=== PATIENT | female | born 1980 | race Caucasian/White ===

== ENCOUNTER 2022-10-22 08:30 | Outpatient (CLI) | payer BC, SELFPAY ==
--- NOTE | 2022-10-22 08:45 | CRLHL7_ITS ---
For Patients: As a result of the Cures Act, medical imaging exams and procedure reports are released immediately into your electronic medical record. You may view this report before your referring provider. If you have questions, please contact your health care provider. DIGITAL DIAGNOSTIC RIGHT MAMMOGRAM USING TOMOSYNTHESIS AND COMPUTER-AIDED DETECTION RIGHT BREAST ULTRASOUND CLINICAL HISTORY: RIGHT breast mass/asymmetry. COMPARISON: 08/09/2021, 06/21/2020. TECHNIQUE: Digital RIGHT mammogram in two projections. Tomosynthesis and CAD utilized. Real-time ultrasound imaging of RIGHT breast with imaging documentation. BREAST COMPOSITION: The breast is heterogeneously dense, which may obscure small masses. FINDINGS: 3D spot compression CC/MLO implant-displaced RIGHT breast mammogram images submitted. There is an island of fibroglandular tissue within the upper inner quadrant at posterior depth without architectural distortion or suspicious margins. The implant is intact. No suspicious calcifications. No adenopathy. Targeted RIGHT breast ultrasound performed in the upper inner quadrant 1 o`clock 7 cm from the nipple. An island of dense tissue is present without underlying mass. No fibrocystic change. IMPRESSION: No evidence of malignancy. RECOMMENDATIONS: Annual BILATERAL screening mammography. Results and recommendations discussed with the patient. BI-RADS Category 2: Benign A lay language report of this examination will be provided to the patient. Dictated by Jun Philippe MD @ 10/22/2022 9:38:33 AM /Dictated by: Jun Philippe MD @ 10/22/2022 9:38:00 AM (Electronically Signed)
--- NOTE | 2022-10-22 09:15 | CRLHL7_ITS ---
For Patients: As a result of the Cures Act, medical imaging exams and procedure reports are released immediately into your electronic medical record. You may view this report before your referring provider. If you have questions, please contact your health care provider. PLEASE SEE DIGITAL DIAGNOSTIC RIGHT MAMMOGRAM PERFORMED SAME DAY CRL:candice harvey/Dictated by: Jun Philippe MD @ 10/22/2022 9:38:00 AM (Electronically Signed)
== END 2022-10-22 08:31 | disposition home or self-care (01) ==
PROVIDERS: Visit Provider Registered Nurse
DX: N63.10 Unspecified lump in the right breast, unspecified quadrant (principal); R92.2 Inconclusive mammogram; R92.8 Other abnormal and inconclusive findings on diagnostic imaging of breast
CPT/HCPCS: 76642; 77065; G0279

== ENCOUNTER 2022-12-05 00:52 | Outpatient (CLI) | payer BC, SELFPAY | END 2022-12-05 00:53 | disposition home or self-care (01) | LOC: AMB 12-08 09:13 | PROVIDERS: Visit Provider Family Medicine | DX: R10.9 Unspecified abdominal pain (principal) | CPT/HCPCS: A0425; A0429 ==

== ENCOUNTER 2022-12-05 01:28 | Emergency (ER) | payer BC, SELFPAY ==
[2022-12-05 01:37] VITALS: BP 110/79; PULSE 85; RESP 16; TEMP 36.8; O2SAT 99; BMI 25.0
--- NOTE | 2022-12-05 01:41 | ED_ITS ---
HPI - Abdominal Pain General Time Seen by Provider: 01:41 <Awilda Verdugo MD - Last Filed: 12/05/22 01:56> Date Seen: 12/05/22 <Awilda Verdugo MD - Last Filed: 12/05/22 01:56> Chief Complaint: Abdominal Pain <Awilda Verdugo MD - Last Filed: 12/05/22 01:56> Stated Complaint: stomach pain <Awilda Verdugo MD - Last Filed: 12/05/22 01:56> Time Seen by Provider: 12/05/22 01:40 <Awilda Verdugo MD - Last Filed: 12/05/22 01:56> Source: patient, EMS and RN notes reviewed <Awilda Verdugo MD - Last Filed: 12/05/22 01:56> Mode of arrival: EMS <Awilda Verdugo MD - Last Filed: 12/05/22 01:56> Limitations: no limitations <Awilda Verdugo MD - Last Filed: 12/05/22 01:56> History of Present Illness HPI narrative: This 42-year-old female is brought in by EMS for severe abdominal pain, she points to the epigastric area where it is, moved a bit over to right upper quadrant. She is status post cholecystectomy before, has also had a hysterectomy. She was watching television having a night cap with her significant other when this ?hit her like a ton of bricks? per her significant other. She is lying quietly, he initially does most of the talking but she eventually does start talking. She felt significant nausea but no vomiting no stool production, no urinary symptoms. She collapsed in the bathroom from the pain to the floor and could not get up because of the pain. EMS did give her 50 micro g IM fentanyl which did initially help but is already wearing off. No fevers or chills. No associated respiratory symptoms, no radiation of pain elsewhere, not into the chest. She has not had any respiratory symptoms with this. She is feeling nauseated at this time. <Awilda Verdugo MD - Last Filed: 12/05/22 01:56> MD elicited complaint: abdominal pain <Awilda Verdugo MD - Last Filed: 12/05/22 01:56> Pain Consistency: constant <Awilda Verdugo MD - Last Filed: 12/05/22 01:56> Location: epigastric and RUQ <Awilda Verdugo MD - Last Filed: 12/05/22 01:56> Severity: severe <Awilda Verdugo MD - Last Filed: 12/05/22 01:56> Radiation: none <Awilda Verdugo MD - Last Filed: 12/05/22 01:56> Related Data Hx Last Menstrual Period: Status post hysterectomy <Awilda Verdugo MD - Last Filed: 12/05/22 01:56> Patient : No <Awilda Verdugo MD - Last Filed: 12/05/22 01:56> Home Medications: Home Medications Medication Instructions Recorded Confirmed levothyroxine 125 mcg tablet 125 mcg PO DAILY 12/05/22 12/05/22 <Awilda Verdugo MD - Last Filed: 12/05/22 01:56> Allergies/Adverse Reactions: Allergies Allergy/AdvReac Type Severity Reaction Status Date / Time No Known Drug Allergies Allergy Verified 12/05/22 01:40 <Awilda Verdugo MD - Last Filed: 12/05/22 01:56> Review of Systems Status of ROS Reports: 6 or more systems reviewed and unremarkable except as noted in History and below <Awilda Verdugo MD - Last Filed: 12/05/22 01:56> [facility] Medical History: Medical History (Updated 12/05/22 @ 03:37 by Ronnie Robbins, RN) No significant past medical history <Awilda Verdugo MD - Last Filed: 12/05/22 01:56> Surgical History: Surgical History (Updated 12/05/22 @ 03:37 by Ronnie Robbins, RN) No significant past surgical history <Awilda Verdugo MD - Last Filed: 12/05/22 01:56> Exam Const: Vital Signs, click to edit/add: Vital Signs - 24 hr 12/05/22 01:37 12/05/22 01:44 Temperature 98.3 F Pulse Rate [Left P ulse Oximeter] 85 Respiratory Rate 16 Blood Pressure [Ri ght Upper Arm] 110/79 Pulse Oximetry 99 97 Oxygen Delivery Me thod Room Air <Awilda Verdugo MD - Last Filed: 12/05/22 01:56> Vital Signs, click to edit/add: Vital Signs - 24 hr 12/05/22 01:37 12/05/22 01:44 Temperature 98.3 F Pulse Rate [Left P ulse Oximeter] 85 Respiratory Rate 16 Blood Pressure [Ri ght Upper Arm] 110/79 Pulse Oximetry 99 97 Oxygen Delivery Me thod Room Air <Amalia Jane MD - Last Filed: 12/05/22 03:39> Documenting provider has reviewed patient's vital signs: yes <Awilda Verdugo MD - Last Filed: 12/05/22 01:56> Common normals: no apparent distress, average body habitus, oriented x3, healthy appearing, alert and well nourished <Awilda Verdugo MD - Last Filed: 12/05/22 01:56> General appearance: cooperative, well kempt, well developed and odor of alcohol detected <Awilda Verdugo MD - Last Filed: 12/05/22 01:56> Other: Lying with her left shoulder down on the bed rotated with the pillow underneath her chest wall initially. She can rotate over for me to feel her abdomen better. <Awilda Verdugo MD - Last Filed: 12/05/22 01:56> HENMT: Common normals: normocephalic, head/scalp atraumatic, hearing grossly normal bilaterally, moist oral mucous membranes, oropharynx normal, dentition normal and gingiva normal <Awilda Verdugo MD - Last Filed: 12/05/22 01:56> Head and scalp: normocephalic and atraumatic <Awilda Verdugo MD - Last Filed: 12/05/22 01:56> Eye: Common normals: PERRL, EOMs intact bilaterally and no scleral icterus <MD Oswaldo Bess Last Filed: 12/05/22 01:56> Pupil: PERRL <MD Oswaldo Bess Last Filed: 12/05/22 01:56> Other: Conjunctiva slightly injected but no periorbital swelling, no drainage. <MD Oswaldo Bess Last Filed: 12/05/22 01:56> Neck & C-Spine: Common normals: full ROM, no lymphadenopathy and supple <MD Oswaldo Bess Last Filed: 12/05/22 01:56> Chest: Common normals: inspection of chest normal and palpation of chest normal <MD Oswaldo Bess Last Filed: 12/05/22 01:56> Resp: Common normals: normal respiratory effort, no retractions, no use of accessory muscles and clear to auscultation bilaterally <MD Oswaldo Patterson Last Filed: 12/05/22 01:56> Auscultation: clear to auscultation bilaterally <MD Oswaldo Bess Last Filed: 12/05/22 01:56> Cardio: Common normals: regular rate, regular rhythm, S1 normal heart sound, S2 normal heart sound, no gallops, no clicks and no murmurs <MD Oswaldo Bess Last Filed: 12/05/22 01:56> Rate: regular rate <MD Oswaldo Bess Last Filed: 12/05/22 01:56> Rhythm: regular rhythm <MD Oswaldo Bess Last Filed: 12/05/22 01:56> Heart sounds: S1 normal and S2 normal <MD Oswaldo Bess Last Filed: 12/05/22 01:56> GI: Common normals: Normal to inspection, nondistended, normoactive bowel sounds present, soft to palpation, no hepatosplenomegaly and no masses <MD Oswaldo Bess Last Filed: 12/05/22 01:56> Palpation: soft and no hepatosplenomegaly <Awilda Verdugo MD - Last Filed: 12/05/22 01:56> Other: Epigastric to mild right upper quadrant tenderness, no rebound or guarding. <Awilda Verdugo MD - Last Filed: 12/05/22 01:56> Extremity: Common normals: no calf tenderness and no pedal edema <Awilda Verdugo MD - Last Filed: 12/05/22 01:56> Neuro: [place] Coma Scale: document GCS findings [place]osselin coma scale eye opening: Spontaneous (4) [place] coma scale verbal response: Orientated (5) [place] coma scale motor response: Obey commands (6) [place] coma scale total score: 15 <Awilda Verdugo MD - Last Filed: 12/05/22 01:56> [place] Coma Scale: document GCS findings [place] coma scale total score: 15 <Amalia Jane MD - Last Filed: 12/05/22 03:39> Common normals: oriented x3 and moves all extremities <Awidla Pineda MD - Last Filed: 12/05/22 01:56> Sensorium/orientation: alert <Awilda Verdugo MD - Last Filed: 12/05/22 01:56> Psych: Appearance: well kempt <Awilda Verdugo MD - Last Filed: 12/05/22 01:56> Course Course Hospital Course: This is a 42-year-old female with severe sudden onset of epigastric pain. She is status post cholecystectomy. She still could have a stone in the duct that has passed, pancreatitis. Could be gastrointestinal including gastritis, peptic ulcer disease but typically these would not have sudden severe onset. Does not seem to be appropriate distribution or symptoms for kidney stone. Will look at a urinalysis. Am ordering CT abdomen pelvis with IV contrast to start. It is likely we would still see a kidney stone if there were 1 there. Patient will be given a L of IV fluids with normal saline, 4 mg IV Zofran to control her nausea and I have ordered another 25 mcg IV fentanyl for pain for her as her pain is returning. When I was in with her, O2 sats with good oximetry were 88- 89%, patient is lying more prone. May need to consider oxygen with the subsequent pain medicines given. Have alerted nursing staff to this. <Awilda Verdugo MD - Last Filed: 12/05/22 01:56> Reevaluation(s) Reevaluation #1: has signed this patient out to me. Currently waiting on laboratory values as well as CT of the abdomen. Not require any further pain medications at this time. When I do enter the room to discuss lab results with family patient is lying supine and appears comfortable in room 6. She is holding the area of her hypogastrium. No complaints of shortness of breath or chest pain. <Amalia Jane MD - Last Filed: 12/05/22 03:39> Reevaluation #2: Patient noted to have reassuring laboratory findings including a normal white count as well as CRP. She has no elevation of her alcohol level to 0.21 as well as lactate of 3.2. LFTs and lipase within normal limits. EKGs and troponin all reassuring at this time as well. I did not discuss alcohol level being elevated at this time given the fact that patient's children were in the room. CT does show increased stool burden but no other acute findings. At 1 point previous physician concerned regarding oxygen levels post fentanyl. Patient now in high 90s oxygen levels on room air. <Amalia Jane MD - Last Filed: 12/05/22 03:39> Vital Signs Vital signs: Initial Vital Signs Temperature 98.3 F 12/05/22 01:37 Temperature Source Temporal Artery Scan 12/05/22 01:37 Pulse Rate 85 12/05/22 01:37 Respiratory Rate 16 12/05/22 01:37 Blood Pressure 110/79 12/05/22 01:37 Blood Pressure Mean 89 12/05/22 01:37 Blood Pressure Position Sitting 12/05/22 01:37 Pulse Oximetry 99 12/05/22 01:37 Oxygen Delivery Method Room Air 12/05/22 01:37 Vital Signs Temperature 98.3 F 12/05/22 01:37 Pulse Rate 85 12/05/22 01:37 Respiratory Rate 16 12/05/22 01:37 Blood Pressure 110/79 12/05/22 01:37 Pulse Oximetry 99 12/05/22 01:37 Oxygen Delivery Method Room Air 12/05/22 01:37 Temperature 98.3 F 12/05/22 01:37 Pulse Rate 85 12/05/22 01:37 Respiratory Rate 16 12/05/22 01:37 Blood Pressure 110/79 12/05/22 01:37 Pulse Oximetry 97 12/05/22 01:44 Oxygen Delivery Method Room Air 12/05/22 01:37 <Awilda Verdugo MD - Last Filed: 12/05/22 01:56> Initial Vital Signs Temperature 98.3 F 12/05/22 01:37 Temperature Source Temporal Artery Scan 12/05/22 01:37 Pulse Rate 85 12/05/22 01:37 Respiratory Rate 16 12/05/22 01:37 Blood Pressure 110/79 12/05/22 01:37 Blood Pressure Mean 89 12/05/22 01:37 Blood Pressure Position Sitting 12/05/22 01:37 Pulse Oximetry 99 12/05/22 01:37 Oxygen Delivery Method Room Air 12/05/22 01:37 Vital Signs Temperature 98.3 F 12/05/22 01:37 Pulse Rate 85 12/05/22 01:37 Respiratory Rate 16 12/05/22 01:37 Blood Pressure 110/79 12/05/22 01:37 Pulse Oximetry 99 12/05/22 01:37 Oxygen Delivery Method Room Air 12/05/22 01:37 Temperature 98.3 F 12/05/22 01:37 Pulse Rate 85 12/05/22 01:37 Respiratory Rate 16 12/05/22 01:37 Blood Pressure 110/79 12/05/22 01:37 Pulse Oximetry 97 12/05/22 01:44 Oxygen Delivery Method Room Air 12/05/22 01:37 <Amalia Jane MD - Last Filed: 12/05/22 03:39> MDM - Abdominal Pain MDM Narrative Medical decision making narrative: 1. Abdominal pain-at this time there is evidence of increased stool burden or constipation on the CT but no evidence of pancreatitis, colitis, or other intra-abdominal abnormality. Laboratory values are reassuring with normal white count, CRP, LFTs and lipase. EKG is reassuring with negative troponins and no evidence of acute ST or T-wave changes. I believe this most likely represents gastritis but could be early viral illness. At this time patient is improved and will be discharging her home. Did treat her with omeprazole 40 mg p.o. in the ED. would like her to continue 20 mg daily for the next 2 weeks. Would like her to decrease alcohol use. Of course for worsening symptoms would have her return to the emergency room for further evaluation. 2. Nausea-patient noted to be improved until immediately prior to discharge. Nursing staff notes complaints of some mild nausea returning. Will give Zofran ODT 4 mg tab p.o. Q 8 hours p.r.n. via [place] machine. 10. With no refills 3. Elevated alcohol level 0.21 with normal liver function tests. 4. Disposition-home with family at this time. In fact I was told by nursing staff that the patient would like to go prior to this 2nd troponin. I did explain that I was just waiting on a 2nd EKG and 2nd troponin and they were very gracious to wait but obviously anxious to depart. I appreciate the fact that they did stay for the 2nd EKG and troponin. Return as needed for worsening symptoms. <Amalia Jane MD - Last Filed: 12/05/22 03:39> Differential Diagnosis Differential diagnosis: Likely abdominal pain, calculus of kidney and pancreatitis <Awilda Verdugo MD - Last Filed: 12/05/22 01:56> Medical Records Attestation: I reviewed the patient's medical records. <Amalia Jane MD - Last Filed: 12/05/22 03:39> Lab Data Attestation: I reviewed the patient's lab results. <Amalia Jane MD - Last Filed: 12/05/22 03:39> Labs: Lab Results 12/05/22 12/05/22 Range/Units 01:40 02:05 WBC 6.98 (4.50-11.00) K/uL RBC 4.30 (4.00-5.20) m/uL Hgb 14.3 (12.0-16.0) gm/dL Hct 41.9 (33.0-51.0) % MCV 97 (80-100) fL MCH 33 (26-34) pg MCHC 34 (32-36) gm/dL RDW Coeff of Gladys 11.5 (11.5-15.5) % Plt Count 243 (140-440) K/uL Neut % (Auto) 53.8 (42.0-72.0) % Lymph % (Auto) 35.7 (20-44) % [place] % (Auto) 7.4 (0.0-11.0) % Eos % (Auto) 2.3 (0.0-7.0) % Baso % (Auto) 0.7 (0.0-3.0) % Neut # (Auto) 3.75 (1.7-7.0) K/uL Lymph # (Auto) 2.49 (0.90-2.90) K/uL [place] # (Auto) 0.50 (0.00-0.90) K/UL Eos # (Auto) 0.16 (0.00-0.50) K/uL Baso # (Auto) 0.05 (0.00-0.30) K/uL Abs Immat Gran (auto) 0.01 (0.00-0.30) K/uL Imm/Tot Granulo (auto) 0.1 % Sodium 142 (135-149) mmol/L Potassium 3.4 L (3.6-5.1) mmol/L Chloride 105 (96-114) mmol/L Carbon Dioxide 21 (20-32) mmol/L BUN 17 (5-24) mg/dL Creatinine 0.5 (0.5-1.5) mg/dL Estimated Creat Clear 131.89 Estimated GFR 120 ml/min Glucose 104 (60-115) mg/dL Lactate 3.2 H (0.5-1.9) mmol/L Calcium 9.1 (8.4-10.6) mg/dL Total Bilirubin 0.5 (0.1-1.5) mg/dL Direct Bilirubin 0.1 (0.0-0.5) mg/dL AST 30 (12-35) U/L ALT 23 (4-35) U/L Alkaline Phosphatase 48 (40-150) U/L Troponin I 0.03 (0.01-0.04) ng/mL C-Reactive Protein < 0.5 L (0.5-1.0) mg/dL Total Protein 8.0 (6.0-8.3) g/dL Albumin 4.9 (3.3-5.0) g/dL Lipase 103 (23-300) U/L Urine Color Yellow (Yellow) Urine Appearance Clear (Clear) Urine pH 7.0 (5.0-8.5) Ur Specific [place] <= 1.005 (1.000-1.030) Urine Protein Negative (Negative) Urine Glucose (UA) Negative (Negative) Urine Ketones Trace A (Negative) Urine Blood Negative (Negative) Urine Nitrite Negative (Negative) Urine Bilirubin Negative (Negative) Urine Urobilinogen 0.2 (0.2-1.0) Ur Leukocyte Esterase Negative (Negative) Urine RBC 0-2 (0-2) Urine WBC 0-2 (0-5) Ur Squamous Epith Cells Few (None-Few) Urine Bacteria None (None) Ethyl Alcohol 0.21 H (0.01-0.03) % <Awilda Verdugo MD - Last Filed: 12/05/22 01:56> Lab Results 12/05/22 12/05/22 Range/Units 01:40 02:05 WBC 6.98 (4.50-11.00) K/uL RBC 4.30 (4.00-5.20) m/uL Hgb 14.3 (12.0-16.0) gm/dL Hct 41.9 (33.0-51.0) % MCV 97 (80-100) fL MCH 33 (26-34) pg MCHC 34 (32-36) gm/dL RDW Coeff of Gladys 11.5 (11.5-15.5) % Plt Count 243 (140-440) K/uL Neut % (Auto) 53.8 (42.0-72.0) % Lymph % (Auto) 35.7 (20-44) % [place] % (Auto) 7.4 (0.0-11.0) % Eos % (Auto) 2.3 (0.0-7.0) % Baso % (Auto) 0.7 (0.0-3.0) % Neut # (Auto) 3.75 (1.7-7.0) K/uL Lymph # (Auto) 2.49 (0.90-2.90) K/uL [place] # (Auto) 0.50 (0.00-0.90) K/UL Eos # (Auto) 0.16 (0.00-0.50) K/uL Baso # (Auto) 0.05 (0.00-0.30) K/uL Abs Immat Gran (auto) 0.01 (0.00-0.30) K/uL Imm/Tot Granulo (auto) 0.1 % Sodium 142 (135-149) mmol/L Potassium 3.4 L (3.6-5.1) mmol/L Chloride 105 (96-114) mmol/L Carbon Dioxide 21 (20-32) mmol/L BUN 17 (5-24) mg/dL Creatinine 0.5 (0.5-1.5) mg/dL Estimated Creat Clear 131.89 Estimated GFR 120 ml/min Glucose 104 (60-115) mg/dL Lactate 3.2 H (0.5-1.9) mmol/L Calcium 9.1 (8.4-10.6) mg/dL Total Bilirubin 0.5 (0.1-1.5) mg/dL Direct Bilirubin 0.1 (0.0-0.5) mg/dL AST 30 (12-35) U/L ALT 23 (4-35) U/L Alkaline Phosphatase 48 (40-150) U/L Troponin I 0.03 (0.01-0.04) ng/mL C-Reactive Protein < 0.5 L (0.5-1.0) mg/dL Total Protein 8.0 (6.0-8.3) g/dL Albumin 4.9 (3.3-5.0) g/dL Lipase 103 (23-300) U/L Urine Color Yellow (Yellow) Urine Appearance Clear (Clear) Urine pH 7.0 (5.0-8.5) Ur Specific [place] <= 1.005 (1.000-1.030) Urine Protein Negative (Negative) Urine Glucose (UA) Negative (Negative) Urine Ketones Trace A (Negative) Urine Blood Negative (Negative) Urine Nitrite Negative (Negative) Urine Bilirubin Negative (Negative) Urine Urobilinogen 0.2 (0.2-1.0) Ur Leukocyte Esterase Negative (Negative) Urine RBC 0-2 (0-2) Urine WBC 0-2 (0-5) Ur Squamous Epith Cells Few (None-Few) Urine Bacteria None (None) Ethyl Alcohol 0.21 H (0.01-0.03) % <Amalia Jane MD - Last Filed: 12/05/22 03:39> Imaging Data CT scan - abdomen: Attestation: I have reviewed the pertinent imaging results. <Amalia Jane MD - Last Filed: 12/05/22 03:39> My impression: I do not note any acute findings. <Amalia Jane MD - Last Filed: 12/05/22 03:39> Radiologist's impression: Lower chest: Bilateral breast implants. Liver: Unremarkable. Spleen: Unremarkable. Pancreas: Unremarkable. Gallbladder and bile ducts: S/p cholecystectomy. Adrenal glands: Unremarkable. Kidneys: Unremarkable. GI tract: Large amount of stool in the colon. Appendix is normal. Vascular structures: Unremarkable. Lymph nodes: Unremarkable. Miscellaneous: Unremarkable. No free air or significant free fluid. Pelvic Organs: Status post hysterectomy. Bones: Unremarkable for age. IMPRESSION: No acute intra-abdominal inflammatory process. Large amount of stool in the colon. Status post cholecystectomy, hysterectomy, and placement of bilateral breast implants. <Amalia Jane MD - Last Filed: 12/05/22 03:39> ECG Data Attestation: I personally reviewed and interpreted this ECG as follows: <Amalia Jane MD - Last Filed: 12/05/22 03:39> Interpretation: EKG 1. By my read shows sinus rhythm at a rate of 81. I do not note any acute ST or T-wave changes. P.r.n. QT intervals normal. EKG 2. By my read shows sinus rhythm at a rate of 76. QT is slightly prolonged at 481 compared with previous 476 milliseconds. Again no acute ST or T-wave changes are noted. <Amalia Jane MD - Last Filed: 12/05/22 03:39> Discharge Plan Discharge Clinical Impression: Elevated blood alcohol level, Abdominal pain, Constipation <Awilda Verdugo MD - Last Filed: 12/05/22 01:56> Patient Disposition: Home w/ Parent or Adult <Awilda Verdugo MD - Last Filed: 12/05/22 01:56> Condition: Improved <Awilda Verdugo MD - Last Filed: 12/05/22 01:56> Additional Instructions: At this time your CT scan does not show any life threatening ailment. It does show increased stool which can be associated with constipation. Suggest pushing fluids. Stool softener such as something called Colace or MiraLax may be helpful. I think the pain that you are experiencing may be from irritation of your stomach. We gave you a dose of omeprazole tonight. Would like you to continue that. This can be purchased [id number]. One tablet or 20 mg daily for 2 weeks is suggested. I would also suggest decreasing alcohol intake. Tonight your alcohol level is 0.21. Alcohol can be very irritating to the stomach lining. At this time your labs are within normal limits and reassuring. This includes your white count, inflammatory marker called CRP as well as heart tests. <Awilda Verdugo MD - Last Filed: 12/05/22 01:56> Prescriptions: No Action levothyroxine 125 mcg tablet 125 mcg PO DAILY <Awilda Verdugo MD - Last Filed: 12/05/22 01:56> Follow Up/Referrals: Provider,Not a Local [Primary Care Provider] - <Awilda Verdugo MD - Last Filed: 12/05/22 01:56> Stand Alone Forms: [facility] Info Instructions <Awilda Verdugo MD - Last Filed: 12/05/22 01:56>
[2022-12-05 01:44] VITALS: O2SAT 97
--- NOTE | 2022-12-05 01:44 | CRLHL7_ITS ---
For Patients: As a result of the Century Cures Act, medical imaging exams and procedure reports are released immediately into your electronic medical record. You may view this report before your referring provider. If you have questions, please contact your health care provider. INDICATION: Epigastric pain TECHNIQUE: CT abdomen and pelvis acquired with 73 cc Isovue 370 IV contrast. COMPARISON: February 25, 2019 FINDINGS: Lower chest: Bilateral breast implants. Liver: Unremarkable. Spleen: Unremarkable. Pancreas: Unremarkable. Gallbladder and bile ducts: S/p cholecystectomy. Adrenal glands: Unremarkable. Kidneys: Unremarkable. GI tract: Large amount of stool in the colon. Appendix is normal. Vascular structures: Unremarkable. Lymph nodes: Unremarkable. Miscellaneous: Unremarkable. No free air or significant free fluid. Pelvic Organs: Status post hysterectomy. Bones: Unremarkable for age. IMPRESSION: No acute intra-abdominal inflammatory process. Large amount of stool in the colon. Status post cholecystectomy, hysterectomy, and placement of bilateral breast implants. Please note that all CT scans at this facility use dose modulation, iterative reconstruction, and/or weight-based dosing when appropriate to reduce radiation dose to as low as reasonably achievable. Dictated by Savana Verdugo MD @ 12/05/2022 2:28:26 AM (Electronically Signed)
[2022-12-05] MEDS: 0.9 % SODIUM CHLORIDE 1000 ml 1,000 ML 500 ML IV (01:48)
[2022-12-05] MEDS: ONDANSETRON 2 MG/ML inj 4 MG IVP (01:48)
[2022-12-05 01:55] LABS: Lactate* 3.2 mmol/L (0.5-1.9)
[2022-12-05] MEDS: fentaNYL 100 MCG/2 ML inj 25 MCG IVP (01:57)
[2022-12-05 02:00] LABS: Basophils Absolute Auto 0.05 K/uL (0.00-0.30); Basophils Percent Auto 0.7 % (0.0-3.0); Eosinophils Absolute Auto 0.16 K/uL (0.00-0.50); Eosinophils Percent Auto 2.3 % (0.0-7.0); Hematocrit 41.9 % (33.0-51.0); Hemoglobin* 14.3 gm/dL (12.0-16.0); Immature Granulocytes Abs Auto 0.01 K/uL (0.00-0.30); Immature Granulocytes Pct Auto 0.1 %; Lymphocytes Absolute Auto 2.49 K/uL (0.90-2.90); Lymphocytes Percent Auto 35.7 % (20-44); Mean Corpuscular HGB Conc 34 gm/dL (32-36); Mean Corpuscular Hemoglobin 33 pg (26-34); Mean Corpuscular Volume 97 fL (80-100); Monocytes Percent Auto 7.4 % (0.0-11.0); Neutrophils Absolute Auto 3.75 K/uL (1.7-7.0); Neutrophils Percent Auto 53.8 % (42.0-72.0); Platelet Count* 243 K/uL (140-440); RDW Coefficient of Variation % 11.5 % (11.5-15.5); White Blood Count* 6.98 K/uL (4.50-11.00)
[2022-12-05 02:03] LABS: Slide Review Reflex No
[2022-12-05 02:10] LABS: Albumin* 4.9 g/dL (3.3-5.0); Chloride* 105 mmol/L (96-114); Sodium* 142 mmol/L (135-149)
[2022-12-05 02:11] LABS: Potassium* 3.4 mmol/L (3.6-5.1)
[2022-12-05 02:12] LABS: Appearance Urine Clear (Clear); Bilirubin Urine Negative (Negative); Blood Urine Negative (Negative); Color Urine Yellow (Yellow); Glucose Urine Negative (Negative); Ketones Urine Trace (Negative); Leukocyte Esterase Urine Negative (Negative); Nitrite Urine Negative (Negative); Protein Urine Negative (Negative); Specific Gravity Urine <= 1.005 (1.000-1.030); Urobilinogen Urine 0.2 (0.2-1.0)
[2022-12-05 02:13] LABS: Aspartate Amino Transferase* 30 U/L (12-35); Bilirubin Direct* 0.1 mg/dL (0.0-0.5); Bilirubin Total* 0.5 mg/dL (0.1-1.5); Carbon Dioxide* 21 mmol/L (20-32); Creatinine* 0.5 mg/dL (0.5-1.5); Est. Creatinine Clearance* 131.89; Estimated Glomerular Filt Rate 120 ml/min
[2022-12-05 02:14] LABS: Alanine Aminotransferase* 23 U/L (4-35); Alkaline Phosphatase* 48 U/L (40-150); Blood Urea Nitrogen* 17 mg/dL (5-24); Calcium* 9.1 mg/dL (8.4-10.6); Ethanol* 0.21 % (0.01-0.03); Glucose* 104 mg/dL (60-115); Lipase* 103 U/L (23-300)
[2022-12-05 02:19] LABS: RBC Urine 0-2 (0-2); Squamous Epithelial Cell Urine Few (None-Few); WBC Urine 0-2 (0-5)
[2022-12-05 02:20] LABS: C Reactive Protein* < 0.5 mg/dL (0.5-1.0)
[2022-12-05 02:26] LABS: Troponin I* 0.03 ng/mL (0.01-0.04)
[2022-12-05 02:45] VITALS: BP 119/74; PULSE 85; RESP 16; TEMP 36.8; O2SAT 97
[2022-12-05] MEDS: OMEPRAZOLE 20 MG CAPSULE DR 40 MG PO (02:51)
[2022-12-05 03:38] VITALS: BP 112/74; PULSE 79; RESP 16; TEMP 36.8; O2SAT 97
[2022-12-05 03:40] VITALS: BP 112/74; PULSE 79; RESP 16; TEMP 36.8
== END 2022-12-05 03:40 | disposition home or self-care (01) ==
PROVIDERS: Family Medicine; Emergency Provider Family Medicine
DX: R10.9 Unspecified abdominal pain (principal); K59.00 Constipation, unspecified; R78.0 Finding of alcohol in blood
CPT/HCPCS: 36415; 74177; 80053; 81001; 82077; 82248; 83605; 83690; 84484; 85025; 86140; 93005; 94761; 96361; 96374; 96375; 99284; 99285; A9270; J2405; J3010; J7030; Q9967

== ENCOUNTER 2023-02-13 08:27 | Outpatient (CLI) | payer BC, SELFPAY ==
--- NOTE | 2023-02-13 08:45 | CRLHL7_ITS ---
For Patients: As a result of the Cures Act, medical imaging exams and procedure reports are released immediately into your electronic medical record. You may view this report before your referring provider. If you have questions, please contact your health care provider. DIGITAL DIAGNOSTIC RIGHT MAMMOGRAM USING TOMOSYNTHESIS AND COMPUTER-AIDED DETECTION RIGHT BREAST ULTRASOUND CLINICAL HISTORY: RIGHT breast lump. COMPARISON: 10/22/2022, 10/16/2022. TECHNIQUE: Digital RIGHT mammogram in two projections. Tomosynthesis and CAD utilized. Real-time ultrasound imaging of RIGHT breast with imaging documentation. Scanning was performed by both the technologist and the radiologist. BREAST COMPOSITION: The breast is heterogeneously dense, which may obscure small masses. FINDINGS: Additional mammogram images demonstrate no evidence of architectural distortion or suspicious mass. Intact implants. No suspicious calcifications. No adenopathy. Targeted RIGHT breast ultrasound performed demonstrates normal fibroglandular tissue with a few scattered areas of incidental multi duct ectasia. In particular, at 2 o`clock 4 cm from the nipple there is an island of dense tissue corresponding to the area of concern. IMPRESSION: No evidence of malignancy. RECOMMENDATIONS: Annual BILATERAL screening mammography at the appropriate interval. Clinical follow-up. Consider consultation with Plastic surgery regarding the symptoms. Results and recommendations discussed with the patient and her . BI-RADS Category 2: Benign A lay language report of this examination will be provided to the patient. Dictated by Jun Philippe MD @ 02/13/2023 12:15:13 PM maria [email or web address]/Dictated by: Jun Philippe MD @ 02/13/2023 12:15:00 PM (Electronically Signed)
--- NOTE | 2023-02-13 09:15 | CRLHL7_ITS ---
For Patients: As a result of the Cures Act, medical imaging exams and procedure reports are released immediately into your electronic medical record. You may view this report before your referring provider. If you have questions, please contact your health care provider. PLEASE SEE DIGITAL DIAGNOSTIC RIGHT MAMMOGRAM PERFORMED SAME DAY CRL:candice harvey/Dictated by: Jun Philippe MD @ 02/13/2023 12:15:00 PM (Electronically Signed)
== END 2023-02-13 08:28 | disposition home or self-care (01) ==
LOC: MAMMO 08:28
PROVIDERS: Visit Provider Registered Nurse
DX: N63.10 Unspecified lump in the right breast, unspecified quadrant (principal); R92.2 Inconclusive mammogram; N64.4 Mastodynia
CPT/HCPCS: 76642; 77065; 77067; G0279

== ENCOUNTER 2023-09-18 14:56 | Outpatient (CLI) | payer BC, SELFPAY | END 2023-09-18 14:57 | disposition home or self-care (01) | PROVIDERS: Visit Provider Family Medicine | DX: E03.9 Hypothyroidism, unspecified (principal); R22.1 Localized swelling, mass and lump, neck; R53.83 Other fatigue | CPT/HCPCS: 80053; 80061; 82306; 82607; 82728; 84443 ==

== ENCOUNTER 2023-09-30 14:47 | Outpatient (CLI) | payer BC, SELFPAY ==
--- NOTE | 2023-09-30 15:00 | US_ITS ---
Patient: ROXANNE PEDRO Facility:?[facility] Patient ID:?[id number] Site Patient ID:?[id number]. Site :?[id number] Study:?US-ST Neck Right -09/30/2023 3:39:52 PM Ordering Physician:?Gina Stringer Final Report: Indication: Two areas of localized swelling and palpable abnormality in the right neck. Technique: Ultrasound examination of the areas of palpable abnormality is performed with a high-resolution linear transducer. Comparison: None available Findings: The superior palpable abnormality is located in the right neck in the inframandibular region. This corresponds to a normal appearing lymph node measuring 1.6 x 1.5 x 0.5 centimeters, with normal hilar architecture. This requires no further follow-up. The inferior palpable abnormality is located to the right of midline in the lower neck. This is seen to be a nodule in the right lobe of the thyroid measuring 1.1 x 0.7 x 0.6 centimeters with mildly increased peripheral color Doppler flow. It is solid, slightly hyperechoic, wider than tall, with smooth margins. This has a TI-RADS score of TR 3, mildly suspicious. Since it is less than 1.5 centimeters in diameter, no specific follow-up is indicated. The technologist mentions that this is similar in appearance and size on a previous exam from 12/15/2018, but I do not have this report or the images. Impression: 1. Right inframandibular nodule is seen to be a normal-appearing lymph node requiring no further follow-up. 2. Right paramedian lower neck palpable abnormality is seen to be a solid nodule in the right lobe of the thyroid, measuring up to 1.1 centimeters in diameter. TI-RADS score of TR 3, mildly suspicious. Since it is less than 1.5 centimeters in diameter, no specific follow-up is indicated. Dictated by Wyatt Vasquez MD @ 10/01/2023 11:04:33 AM Signed by:?Wyatt Vasquez MD @10/01/2023 11:04:33 AM (Electronic Signature)
== END 2023-09-30 14:48 | disposition home or self-care (01) ==
LOC: US 14:48
PROVIDERS: PCP Family Medicine; Visit Provider Family Medicine
DX: R22.1 Localized swelling, mass and lump, neck (principal); E04.1 Nontoxic single thyroid nodule
CPT/HCPCS: 76536

== ENCOUNTER 2024-12-01 13:30 | Outpatient (CLI) | payer BC, SELFPAY ==
--- NOTE | 2024-12-01 13:40 | CRLHL7_ITS ---
For Patients: As a result of the Century Cures Act, medical imaging exams and procedure reports are released immediately into your electronic medical record. You may view this report before your referring provider. If you have questions, please contact your health care provider. INDICATION: BILATERAL SCREENING MAMMOGRAM W/ IMPLANTS, ASYMPTOMATIC 44 Y/O FEMALE COMPARISON: 10/16/2022, 08/09/2021, 06/21/2020 TECHNIQUE: Digital mammogram in CC and MLO projections including computer-aided detection (CAD) and tomosynthesis. BREAST COMPOSITION: There are scattered areas of fibroglandular density. FINDINGS: No suspicious findings. ASSESSMENT: BI-RADS 2 Benign RECOMMENDATION: Annual screening mammogram. A lay language report of this examination will be provided to the patient. Dictated by: Jun Philippe MD @ 12/02/2024 09:04:30 (Electronically Signed)
== END 2024-12-01 13:31 | disposition home or self-care (01) ==
LOC: MAMMO 13:31
PROVIDERS: PCP Family Medicine; Visit Provider Registered Nurse
DX: Z12.31 Encounter for screening mammogram for malignant neoplasm of breast (principal); Z98.82 Breast implant status
CPT/HCPCS: 77063; 77067

== ENCOUNTER 2025-01-31 11:24 | Outpatient (CLI) | payer BC, SELFPAY | END 2025-01-31 11:25 | disposition home or self-care (01) | PROVIDERS: PCP Family Medicine; Visit Provider Internal Medicine | DX: E03.8 Other specified hypothyroidism (principal); E06.3 Autoimmune thyroiditis | CPT/HCPCS: 80053; 84443 ==

== ENCOUNTER 2025-02-06 10:40 | Outpatient (CLI) | payer BC, SELFPAY ==
--- NOTE | 2025-02-06 11:00 | CRLHL7_ITS ---
For Patients: As a result of the Century Cures Act, medical imaging exams and procedure reports are released immediately into your electronic medical record. You may view this report before your referring provider. If you have questions, please contact your health care provider. Indication: DIARRHEA FOR 2 MONTHS ,IBS Technique: CT ABDOMEN PELVIS WITH ISOVUE 370 77CC INTRAVENOUS CONTRAST Please note that all CT scans at this facility use dose modulation, iterative reconstruction, and/or weight-based dosing when appropriate to reduce radiation dose to as low as reasonably achievable. Comparison: 12/05/2022 Findings: Visualized breast implants are intact. Lung bases are clear. Liver measures 20.2 cm. Spleen is normal. No intrahepatic mass. The liver size is likely reflective of an incidental María`s lobe. The adrenal glands are normal. Normal kidneys. Normal pancreas. Gallbladder absent. Bladder normal. The uterus and left ovary are absent. Simple circumscribed right adnexal cyst is present which measures 4.4 cm. Normal appendix. Fluid-filled loops of nondistended small bowel noted without surrounding inflammatory stranding. No free air, free fluid or abscess. No evidence of colitis. No inflammatory bowel disease. No fracture. Incidental chronic changes to the inferior endplate of L5. Impression: Fluid-filled loops of nondistended small bowel compatible with diarrheal illness. No evidence of inflammatory bowel disease. Please note that all CT scans at this facility use dose modulation, iterative reconstruction, and/or weight-based dosing when appropriate to reduce radiation dose to as low as reasonably achievable. Dictated by Jun Philippe MD @ 02/06/2025 12:56:50 PM (Electronically Signed)
== END 2025-02-06 10:41 | disposition home or self-care (01) ==
LOC: CT 10:41
PROVIDERS: PCP Internal Medicine; Visit Provider Internal Medicine
DX: R19.7 Diarrhea, unspecified (principal)
CPT/HCPCS: 74177; Q9967